=== PATIENT | male | born 1935 | race Caucasian/White ===

== ENCOUNTER → 2018-01-15 | Day surgery (SDC) | payer OTHER ==
[~2018-01-15] MED LIST: ATROPINE SULFATE 1% OPHT SOLN 5 ML BTL ONE; DEXAMETHASONE SOD PHOS 4 MG/ML VIAL ONE; EPINEPHrine HCL (1:1000) 1 MG/ML VIAL ONE; FLURBIPROFEN 0.03% OPHT SOLN 2.5 ML BTL ONE; HYALURONIDASE/LIDOCAINE/BUPIVACAINE 5 ML SYR ONE; LACTATED RINGER'S 1000 ML INJ 1,000 ML ONE; NEOMYCIN/POLYMYXIN/DEXAMETHASONE OPTH OINT 3.5 GM TUBE ONE; PHENYLEPHRINE HCL 2.5 % OPTH SOLN 15 ML BTL ONE; PROPOFOL 100 MG/10 ML INJ IV ONE; SODIUM CHLORIDE 0.9% INJ 10 ML ONE; TETRACAINE 0.5% OPTH SOLN 15 ML BTL ONE; TROPICAMIDE 1% OPHT SOLN 15 ML BTL ONE; ceFAZolin INJ 1,000 MG VIAL ONE
--- NOTE | 2018-01-28 10:14 | MP ---
cc: Burke Parmar MD DATE OF OPERATION: 01/15/2018 PREOPERATIVE DIAGNOSIS: Dislocated intraocular lens implant right eye. POSTOPERATIVE DIAGNOSIS: Dislocated intraocular lens implant right eye. PROCEDURE: Pars plana vitrectomy, removal of dislocated intraocular lens implant and placement of secondary intraocular lens implant right eye. ANESTHESIA: MAC SURGEON: Burke Parmar MD COMPLICATIONS: None PROCEDURE: After the patient gave informed consent, the patient was anesthetized using MAC anesthesia. The patient was then brought to the operating room and prepare and draped in the usual sterile fashion. A wire lid speculum was placed in the patient's right eye. A superior 180 degree conjunctival peritomy was then performed using 0.12 forceps and Alberto scissors. Excellent hemostasis was obtained with the bipolar cautery. 23-gauge vitrectomy cannulas were then placed in the lower temporal, superotemporal and superonasal quadrants 3 mm posterior to the corneoscleral limbus. An infusion cannula was placed lower temporally. Superiorly a 6 mm corneoscleral shelled frown incision was made using a 64 blade, crescent knife and keratome. The vitrector was then used to remove the vitreous. The dislocated lens was grasped using intraocular forceps and maneuvered into the anterior chamber and removed. An 18.5 diopter MTA4UO lens was then placed into the anterior chamber. A superonasal peripheral iridectomy was performed using the vitreous cutter. Careful indirect ophthalmoscopy with scleral depression was then performed and no peripheral retinal breaks were noted. The corneal scleral incision was closed using three interrupted 10-0 nylon sutures. The two superior sclerotomy sites were closed using an interrupted 6-0 Vicryl suture. The infusion cannula was removed. The conjunctiva was re-apposed using two interrupted 7-0 Vicryl sutures. Subconjunctival injections of dexamethasone and Ancef were placed. An atropine drop, Maxitrol ointment and a patch and shield were then applied. The patient tolerated the procedure well. There were no complications. [facility]. Burke Parmar MD TAB/DL , 07:49 PM , 06:33 AM
== END | disposition home or self-care (01) ==
LOC: ESDC 12:13
PROVIDERS: ATTEND Ophthalmology Retina Specialist
DX: H27.131 Posterior dislocation of lens, right eye (principal)
CPT/HCPCS: 00142; 00145; 66985; 67036; 67121; J0171; J0690; J1100; J7120; V2630